=== PATIENT | male | born 1980 | race Caucasian/White ===

== ENCOUNTER 2019-01-19 02:11 | Emergency (ER) | payer MEDICAID, OTHER ==
[~2019-01-19] VITALS: Ht 167.6 cm; Wt 113.6 kg
[2019-01-19 02:17] VITALS: Ht 167.6 cm; Wt 113.6 kg
[2019-01-19] MEDS ORDERED: morphine 4 MG/ML VIAL IV STA (03:04)
[2019-01-19] MEDS ORDERED: METOCLOPRAMIDE 10 MG INJ IV STA (03:04)
[2019-01-19] MEDS ORDERED: LIDOCAINE/MYLANTA 40 ML BTL PO STA (03:04)
[2019-01-19] MEDS ORDERED: FAMOTIDINE 20 MG TAB PO STA (03:04)
[2019-01-19] MEDS ORDERED: SOD CHLORIDE 0.9% 1,000 ML IV STA (03:04)
--- NOTE | 2019-01-19 04:11 | ERD ---
ER Documentation Chief Complaint Chief Complaint BIBA C/O AP SINCE THIS PM. FELT LIGHT HEADED WHEN WALKING HPI 38-year-old male brought in by ambulance complaining of epigastric abdominal pain that started last night and has progressively worsened throughout the night. He describes as a burning pain radiating up his chest associated with a few episodes of nonbloody and nonbilious vomiting. His pain is worsened with laying down, improves with standing and walking around. He did have diaphoresis and dizziness when he felt nauseated and was vomiting which has since resolved. Currently he is denying any chest pain. He complains of burning epigastric pain, 8 out of 10, nonradiating. No shortness of breath, focal weakness or numbness, or headache. ROS All systems reviewed and are negative except as per history of present illness. Medications Home Meds Active Scripts Famotidine* (Pepcid*) 20 Mg Tablet, 20 MG PO BID for 14 Days, TAB Prov:KARY PEREZ MD 01/19/19 Allergies Allergies: Coded Allergies: No Known Allergy (Unverified , 01/19/19) PMhx/Soc Medical and Surgical Hx: pt denies Medical Hx, pt denies Surgical Hx Hx Alcohol Use: No Hx Substance Use: No Hx Tobacco Use: No Smoking Status: Never smoker FmHx Family History: No diabetes Physical Exam Vitals Vital Signs Date Temp Pulse Resp B/P (MAP) Pulse Ox O2 O2 Flow FiO2 Time Delivery Rate 01/19/19 86 16 125/86 100 Room Air 04:25 (99) 01/19/19 84 14 121/81 97 Room Air 04:05 (94) 01/19/19 99.0 94 15 149/91 100 02:17 (110) Physical Exam Const: No acute distress Head: Atraumatic Eyes: Normal Conjunctiva ENT: Normal External Ears, Nose and Mouth. Neck: Full range of motion. No meningismus. Resp: Clear to auscultation bilaterally Cardio: Regular rate and rhythm, no murmurs Abd: Soft, non tender, non distended. Normal bowel sounds Skin: No petechiae or rashes Back: No midline or flank tenderness Ext: No cyanosis, or edema Neur: Awake and alert Psych: Normal Mood and Affect Result Diagram: 01/19/19 0306 01/19/19 0306 Results 24 hrs Laboratory Tests Test 01/19/19 03:06 White Blood Count 9.1 10^3/ul Red Blood Count 5.27 10^6/ul Hemoglobin 14.7 g/dl Hematocrit 43.5 % Mean Corpuscular Volume 82.5 fl Mean Corpuscular Hemoglobin 27.9 pg Mean Corpuscular Hemoglobin Concent 33.8 g/dl Red Cell Distribution Width 12.8 % Platelet Count 233 10^3/UL Mean Platelet Volume 11.2 fl Immature Granulocytes % 0.300 % Neutrophils % 46.9 % Lymphocytes % 42.1 % Monocytes % 8.9 % Eosinophils % 1.4 % Basophils % 0.4 % Nucleated Red Blood Cells % 0.0 /100WBC Immature Granulocytes # 0.030 10^3/ul Neutrophils # 4.3 10^3/ul Lymphocytes # 3.8 10^3/ul Monocytes # 0.8 10^3/ul Eosinophils # 0.1 10^3/ul Basophils # 0.0 10^3/ul Nucleated Red Blood Cells # 0.0 10^3/ul Sodium Level 140 mmol/L Potassium Level 4.0 mmol/L Chloride Level 102 mmol/L Carbon Dioxide Level 27 mmol/L Anion Gap 11 Blood Urea Nitrogen 15 mg/dl Creatinine 0.85 mg/dl Est Glomerular Filtrat Rate mL/min > 60 mL/min Glucose Level 123 mg/dl Calcium Level 9.2 mg/dl Total Bilirubin 0.5 mg/dl Direct Bilirubin 0.00 mg/dl Indirect Bilirubin 0.5 mg/dl Aspartate Amino Transf (AST/SGOT) 46 IU/L Alanine Aminotransferase (ALT/SGPT) 84 IU/L Alkaline Phosphatase 95 IU/L Troponin I < 0.012 ng/ml Total Protein 8.2 g/dl Albumin 4.5 g/dl Globulin 3.70 g/dl Albumin/Globulin Ratio 1.21 Lipase 186 U/L Current Medications Medications Dose Sig/Derick Start Time Status Last (Trade) Ordered Route PRN Stop Time Admin Dose Reason Admin Sodium 1,000 ml @ Q1H STAT 01/19/19 DC 01/19/19 Chloride 1,000 mls/hr IV 03:04 03:11 01/19/19 04:03 Morphine 4 mg ONCE STAT 01/19/19 DC 01/19/19 Sulfate IV 03:04 03:12 (morphine) 01/19/19 03:06 10 mg ONCE STAT 01/19/19 DC 01/19/19 Metoclopramid IV 03:04 03:12 e HCl 01/19/19 03:06 (Reglan) Famotidine 20 mg ONCE STAT 01/19/19 DC 01/19/19 (Pepcid) PO 03:04 03:12 01/19/19 03:06 40 ml ONCE STAT 01/19/19 DC 01/19/19 Miscellaneous PO 03:04 03:12 Medication 01/19/19 03:06 (Gi Cocktail (2)) Procedures/MDM EMERGENT LABS AND DIAGNOSTIC STUDIES: Lab Results above were reviewed and interpreted by me. CBC: no anemia or evidence of infection CMP: No evidence of clinically significant electrolyte abnormality, acidosis, renal failure, hypoglycemia, liver disease, or biliary obstruction Lipase: no evidence of pancreatitis Troponin within normal limits, not indicative of cardiac ischemia 12-lead EKG was interpreted by Ananth Perez MD: Normal Sinus Rhythm Normal axis Normal intervals No acute ST or T wave changes suggestive of acute ischemia or STEMI. Initial Nursing notes reviewed. Previous Medical Records requested via the Electronic Health Record. EMERGENCY DEPARTMENT COURSE / MEDICAL DECISION MAKING: Patient is presenting with epigastric burning pain and vomiting. Vitals are unremarkable and he is afebrile. No evidence of acute surgical abdomen on exam. Basic labs were done and did not show any evidence of hepatitis, pancreatitis, or any other significant abnormalities. I do not feel patient requires imaging at this time. He was treated with a GI cocktail, antiemetics, and antacids with improvement of his symptoms. Proper diet for gastritis was discussed. I explained to the patient that I suspect gastritis is the cause of his symptoms. He will be discharged with a prescription for Pepcid. He was encouraged to follow-up with his primary care doctor within the next 1 week. Return precautions given. Patient's blood pressure was elevated (>120/80) but appears stable without evidence of hypertensive emergency or urgency. The patient was counseled about the risks of hypertension and urged to pursue outpatient monitoring and therapy within a week with their primary care physician. Departure Diagnosis: Primary Impression: Abdominal pain Abdominal location: epigastric Qualified Codes: R10.13 - Epigastric pain Additional Impression: Nausea & vomiting Vomiting type: unspecified Vomiting Intractability: non-intractable Qualified Codes: R11.2 - Nausea with vomiting, unspecified Condition: Stable EKKARY GUADARRAMA MD January 19, 2019 04:11
[2019-01-19] MEDS ORDERED: FAMO-96 PO (04:13)
[2019-01-19 04:25] VITALS: BP 125/86; PULSE 86; RESP 16
== END 2019-01-19 04:35 | disposition home or self-care (01) ==
LOC: E/R 02:11
DX: R10.13 Epigastric pain (principal); R11.2 Nausea with vomiting, unspecified
CPT/HCPCS: 36415; 80053; 83690; 84484; 85025; 93005; 96374; 96375; J2270; J2765; J7030; Z7502; Z7610